=== PATIENT | male | born 1975 | race Caucasian/White ===

== ENCOUNTER 2018-07-20 13:15 | Inpatient (IN) ==
[2018-07-20] MEDS ORDERED: SODIUM CHLORIDE 0.9% 1000ML 1,000 ML IV SCH (14:45)
[2018-07-20] MEDS ORDERED: LABETALOL HCL IV 5 MG/ML 20ML IV STA (14:48)
[2018-07-20] MEDS ORDERED: LORazepam 2 MG/ML VIAL (IM USE) ONE (14:57)
[2018-07-20] MEDS ORDERED: PHENYTOIN SOD INJ 50 MG/ML 5 ML VIAL IV ONE (14:59)
[2018-07-20 15:01] LABS: Basophils # (auto) 0.01 K/uL (0-0.2); Basophils % (auto) 0.2 %; Eosinophils # (auto) 0.03 K/uL (0-0.5); Eosinophils % (auto) 0.5 %; Hemoglobin 14.7 g/dL (14.0-18.0); Immature Granulocytes # (auto) 0.05 K/uL (0.00-0.02); Immature Granulocytes % (auto) 0.8 %; Lymphocytes # (auto) 0.68 K/uL (1.2-3.4); Lymphocytes % (auto) 10.9 %; Mean Corpuscular Volume 86.8 fL (80-100); Mean Platelet Volume 10.4 fL (7.4-10.4); Monocytes # (auto) 0.73 K/uL (0.11-0.59); Monocytes % (auto) 11.7 %; Neutrophils # (auto) 4.74 K/uL (1.4-6.5); Neutrophils % (auto) 75.9 %; Platelet Count 106 K/uL (130-400); RDW Coefficient of Variation 13.4 % (11.5-14.5); RDW Standard Deviation 42.8 fL (36.4-46.3); Red Blood Count 4.84 M/uL (4.7-6.1); White Blood Count 6.24 K/uL (4.8-10.8)
[2018-07-20] MEDS ORDERED: LORazepam 1 MG/2 ML VIAL IV STA (15:05)
[2018-07-20] MEDS ORDERED: PHENYTOIN IV STA (15:18)
[2018-07-20] MEDS ORDERED: SODIUM CHLORIDE 0.9% IV STA (15:18)
[2018-07-20 15:23] LABS: Albumin Level 3.6 gm/dl (3.4-5.0); BUN Creatinine Ratio 9.9 (10-20); Calcium 8.8 mg/dl (8.5-10.1); Creatinine Clr Calc Pharmacy 152.9 ml/min; Est GFR (African American) 118.5; Est GFR (Non-African American) 102.2; Potassium 3.7 mmol/L (3.5-5.1)
[2018-07-20 15:28] LABS: Albumin Globulin Ratio 0.9 (0.9-2); Bilirubin,Total 0.6 mg/dl (0.2-1); Globulin 3.9 gm/dl (2.5-4.0); Total Protein 7.5 gm/dl (6.4-8.2); Troponin I 0.018 ng/ml (0-0.045)
--- NOTE | 2018-07-20 16:26 | CT Scan Report ---
HEAD CT NONCONTRAST CT DOSE: HISTORY: fall, hit head and face TECHNIQUE: Multiaxial CT images of the head were performed without the use of intravenous contrast. A utomated exposure control was utilized for this study. A dose lowering technique was utilized adheri ng to the principles of ALARA. Comparison: None. Findings: Mucosal thickening within the maxillary sinuses. The mastoid air cells are clear. Mild subc utaneous fat stranding/scarring adjacent to the right mastoid. This may be chronic. As also mild righ t lateral scalp swelling. The calvarium and skull base are intact. The ventricles and sulci are withi n normal limits. There is no mass, hematoma, midline shift, or acute infarct. Impression: No acute intracranial abnormality. Electronically signed by: Rafael Fernandez M.D. 07/20/2018 4:25 PM
--- NOTE | 2018-07-20 16:29 | CT Scan Report ---
CT facial bones wo con CT DOSE: 860.38 mGy.cm HISTORY: Trauma fall, hit head and face TECHNIQUE: Multiaxial CT images of the maxillofacial region were performed and reformatted in the cor onal plane without the use of contrast. A dose lowering technique was utilized adhering to the princ iples of BONITA. COMPARISON: None. FINDINGS: The visualized cervical spine, skull base, pterygoid plates, nasal bones, lamina papyracea, orbital floors, mandible, and zygomatic arches are intact. No fractures. The orbits are unremarkable . Moderate scattered mucosal thickening of the sinuses. Mild prefrontal soft tissue edema. IMPRESSION: No fractures within the maxillofacial region. The above report was generated using voice recognition software. It may contain grammatical, syntax or spelling errors. Electronically signed by: Pérez Wilkinson M.D. 07/20/2018 4:28 PM
--- NOTE | 2018-07-20 16:35 | XRay Report ---
XR chest 1V portable HISTORY: syncope COMPARISON: None. FINDINGS: The cardiac silhouette is mildly enlarged. This may be accentuated by the AP portable techn ique. The lungs are clear. No pleural effusions. No pneumothorax. No rib fractures. IMPRESSION: Mild enlargement of the cardiac silhouette. Electronically signed by: Rafael Fernandez M.D. 07/20/2018 4:34 PM
--- NOTE | 2018-07-20 16:51 | Emergency Department Note ---
Entered by Carina Walter acting as a scribe for Klaus Gonzales MD History of Present Illness General Chief complaint: Seizure Stated complaint: SEIZURE Time Seen by Provider: 07/20/18 14:33 Source: patient and family (mother) History of Present Illness Provider complaint: seizure Onset (ago): hour(s) (shortly prior to arrival ) Location: left and right Pain Consistency: + other (lasted for 1 minute) Quality: + other (seizure) Associated symptoms: + denies other symptoms (denies any pain including neck pain) The patient is a 43 year old male who presents to the Emergency Department with complaints of a seizure occurring shortly prior to arrival. The patient states that the last thing he remembers after coming out of his truck is waking up in a mud puddle. He states that he did not bite his tongue or urinate himself. The patient denies having any pain currently including neck pain. He reports a history of hypertension. The patient denies a history of seizures and also denies a family history of seizures. The patient reports recent stress with switching jobs. He reports feeling fine prior to today. Per mother, the patient is a heavy drinker. He denies drinking heavily last night. The patient states that he does not drink enough water. Review of notes show that the patient works in construction and was dazed and then collapsed and had a 1 minute seizure. He was post-ictal afterwards. He was given 2 mg of Versed IM. Home Medications Home Medications Medication Instructions Recorded Confirmed Type atenolol 100 mg PO QAM 07/20/18 07/20/18 History fosinopril 20 mg PO QAM 07/20/18 07/20/18 History Allergies Allergy/AdvReac Type Severity Reaction Status Date / Time No Known Allergies Allergy Unverified 07/20/18 14:13 Past Med/Surg History Social History Preferred Language: French Feels Safe at Home: Yes Smoking Status: Light tobacco smoker Hx Alcohol Use: Yes (Binge drinker) Review of Systems See HPI for pertinent positives & negatives. and A total of 10 systems reviewed and were otherwise negative Physical Exam Vital Signs Vital Signs - 24 hr 07/20/18 13:25 07/20/18 13:28 07/20/18 13:32 Temperature 36.7 C Temperature Source Oral Sepsis Recent Fever Within 48 Hours No Sepsis New/Unexplained Change in Mental Status No Sepsis Action Taken by Nursing No Action Required Pulse Rate 88 90 90 Pulse Rate [Apical] Pulse Rate from SpO2 Sensor 89 90 Pulse Rhythm [Apical] Pulse Strength [Apical] Respiratory Rate 24 20 23 Respiratory Effort / Characteristics Non-Labored Spontaneous Respiratory Depth Respiratory Pattern Blood Pressure 188/109 H 188/109 H Blood Pressure [Left Arm] Blood Pressure Mean 135 135 Blood Pressure Mean [Left Arm] Blood Pressure Position [Left Arm] Pulse Oximetry 95 95 94 Oxygen Delivery Method Room Air 07/20/18 13:45 07/20/18 13:48 07/20/18 13:50 Temperature Temperature Source Sepsis Recent Fever Within 48 Hours Sepsis New/Unexplained Change in Mental Status Sepsis Action Taken by Nursing Pulse Rate 86 87 Pulse Rate [Apical] 89 Pulse Rate from SpO2 Sensor 90 89 Pulse Rhythm [Apical] Regular Pulse Strength [Apical] Normal Respiratory Rate 16 20 22 Respiratory Effort / Characteristics Non-Labored Spontaneous Respiratory Depth Normal Respiratory Pattern Regular Blood Pressure 171/107 H Blood Pressure [Left Arm] 214/119 H Blood Pressure Mean 128 Blood Pressure Mean [Left Arm] 150 Blood Pressure Position [Left Arm] Lying Pulse Oximetry 96 95 97 Oxygen Delivery Method Room Air 07/20/18 14:00 07/20/18 14:01 07/20/18 14:06 Temperature Temperature Source Sepsis Recent Fever Within 48 Hours Sepsis New/Unexplained Change in Mental Status Sepsis Action Taken by Nursing Pulse Rate 94 H 91 H Pulse Rate [Apical] 85 Pulse Rate from SpO2 Sensor 95 H 92 H Pulse Rhythm [Apical] Regular Pulse Strength [Apical] Normal Respiratory Rate 21 17 20 Respiratory Effort / Characteristics Non-Labored Spontaneous Respiratory Depth Normal Respiratory Pattern Regular Blood Pressure 208/119 H Blood Pressure [Left Arm] 208/119 H Blood Pressure Mean 148 Blood Pressure Mean [Left Arm] 148 Blood Pressure Position [Left Arm] Lying Pulse Oximetry 99 99 98 Oxygen Delivery Method Room Air 07/20/18 14:15 07/20/18 14:30 07/20/18 14:31 Temperature Temperature Source Sepsis Recent Fever Within 48 Hours Sepsis New/Unexplained Change in Mental Status Sepsis Action Taken by Nursing Pulse Rate 82 79 80 Pulse Rate [Apical] Pulse Rate from SpO2 Sensor 84 79 80 Pulse Rhythm [Apical] Pulse Strength [Apical] Respiratory Rate 18 25 H 23 Respiratory Effort / Characteristics Respiratory Depth Respiratory Pattern Blood Pressure 210/120 H Blood Pressure [Left Arm] Blood Pressure Mean 150 Blood Pressure Mean [Left Arm] Blood Pressure Position [Left Arm] Pulse Oximetry 98 96 96 Oxygen Delivery Method 07/20/18 14:38 07/20/18 14:45 07/20/18 14:52 Temperature Temperature Source Sepsis Recent Fever Within 48 Hours Sepsis New/Unexplained Change in Mental Status Sepsis Action Taken by Nursing Pulse Rate 81 77 Pulse Rate [Apical] 82 Pulse Rate from SpO2 Sensor 81 77 Pulse Rhythm [Apical] Regular Pulse Strength [Apical] Normal Respiratory Rate 20 22 20 Respiratory Effort / Characteristics Non-Labored Spontaneous Respiratory Depth Normal Respiratory Pattern Regular Blood Pressure 200/109 H Blood Pressure [Left Arm] 210/120 H Blood Pressure Mean 139 Blood Pressure Mean [Left Arm] 150 Blood Pressure Position [Left Arm] Lying Pulse Oximetry 97 98 97 Oxygen Delivery Method Room Air 07/20/18 15:00 07/20/18 15:01 07/20/18 15:15 Temperature Temperature Source Sepsis Recent Fever Within 48 Hours Sepsis New/Unexplained Change in Mental Status Sepsis Action Taken by Nursing Pulse Rate 129 H 119 H 111 H Pulse Rate [Apical] Pulse Rate from SpO2 Sensor 125 H 117 H 111 H Pulse Rhythm [Apical] Pulse Strength [Apical] Respiratory Rate 19 27 H Respiratory Effort / Characteristics Respiratory Depth Respiratory Pattern Blood Pressure 175/142 H Blood Pressure [Left Arm] Blood Pressure Mean 153 Blood Pressure Mean [Left Arm] Blood Pressure Position [Left Arm] Pulse Oximetry 100 96 95 Oxygen Delivery Method 07/20/18 15:25 07/20/18 15:27 07/20/18 15:30 Temperature Temperature Source Sepsis Recent Fever Within 48 Hours Sepsis New/Unexplained Change in Mental Status Sepsis Action Taken by Nursing Pulse Rate 96 H 91 H Pulse Rate [Apical] 94 H Pulse Rate from SpO2 Sensor 96 H 91 H Pulse Rhythm [Apical] Pulse Strength [Apical] Respiratory Rate 24 24 19 Respiratory Effort / Characteristics Respiratory Depth Respiratory Pattern Blood Pressure 189/118 H Blood Pressure [Left Arm] 189/118 H Blood Pressure Mean 141 Blood Pressure Mean [Left Arm] 141 Blood Pressure Position [Left Arm] Pulse Oximetry 94 94 93 Oxygen Delivery Method Room Air 07/20/18 15:31 07/20/18 15:45 07/20/18 15:56 Temperature Temperature Source Sepsis Recent Fever Within 48 Hours Sepsis New/Unexplained Change in Mental Status Sepsis Action Taken by Nursing Pulse Rate 91 H 84 78 Pulse Rate [Apical] Pulse Rate from SpO2 Sensor 91 H 85 79 Pulse Rhythm [Apical] Pulse Strength [Apical] Respiratory Rate 19 23 24 Respiratory Effort / Characteristics Respiratory Depth Respiratory Pattern Blood Pressure 180/110 H 159/109 H Blood Pressure [Left Arm] Blood Pressure Mean 133 125 Blood Pressure Mean [Left Arm] Blood Pressure Position [Left Arm] Pulse Oximetry 92 97 97 Oxygen Delivery Method 07/20/18 16:00 07/20/18 16:23 07/20/18 16:24 Temperature Temperature Source Sepsis Recent Fever Within 48 Hours Sepsis New/Unexplained Change in Mental Status Sepsis Action Taken by Nursing Pulse Rate 79 79 88 Pulse Rate [Apical] Pulse Rate from SpO2 Sensor 79 81 Pulse Rhythm [Apical] Pulse Strength [Apical] Respiratory Rate 24 25 H 23 Respiratory Effort / Characteristics Respiratory Depth Respiratory Pattern Blood Pressure 164/91 H Blood Pressure [Left Arm] Blood Pressure Mean 115 Blood Pressure Mean [Left Arm] Blood Pressure Position [Left Arm] Pulse Oximetry 96 95 Oxygen Delivery Method 07/20/18 16:30 07/20/18 16:31 07/20/18 16:45 Temperature Temperature Source Sepsis Recent Fever Within 48 Hours Sepsis New/Unexplained Change in Mental Status Sepsis Action Taken by Nursing Pulse Rate 78 81 90 Pulse Rate [Apical] Pulse Rate from SpO2 Sensor 79 81 90 Pulse Rhythm [Apical] Pulse Strength [Apical] Respiratory Rate 23 21 24 Respiratory Effort / Characteristics Respiratory Depth Respiratory Pattern Blood Pressure 157/96 H Blood Pressure [Left Arm] Blood Pressure Mean 116 Blood Pressure Mean [Left Arm] Blood Pressure Position [Left Arm] Pulse Oximetry 96 96 96 Oxygen Delivery Method 07/20/18 16:48 07/20/18 17:00 07/20/18 17:02 Temperature Temperature Source Sepsis Recent Fever Within 48 Hours Sepsis New/Unexplained Change in Mental Status Sepsis Action Taken by Nursing Pulse Rate 85 84 Pulse Rate [Apical] Pulse Rate from SpO2 Sensor 85 84 Pulse Rhythm [Apical] Pulse Strength [Apical] Respiratory Rate 18 22 Respiratory Effort / Characteristics Respiratory Depth Respiratory Pattern Blood Pressure 159/101 H Blood Pressure [Left Arm] 157/96 H Blood Pressure Mean 120 Blood Pressure Mean [Left Arm] 116 Blood Pressure Position [Left Arm] Pulse Oximetry 97 99 Oxygen Delivery Method 07/20/18 17:15 07/20/18 17:25 07/20/18 17:35 Temperature 36.7 C Temperature Source Oral Sepsis Recent Fever Within 48 Hours Sepsis New/Unexplained Change in Mental Status Sepsis Action Taken by Nursing Pulse Rate 88 97 H Pulse Rate [Apical] 97 H Pulse Rate from SpO2 Sensor 88 Pulse Rhythm [Apical] Pulse Strength [Apical] Respiratory Rate 16 16 16 Respiratory Effort / Characteristics Non-Labored Spontaneous Respiratory Depth Normal Respiratory Pattern Regular Blood Pressure 159/101 H Blood Pressure [Left Arm] 159/101 H Blood Pressure Mean Blood Pressure Mean [Left Arm] 120 Blood Pressure Position [Left Arm] Pulse Oximetry 98 98 98 Oxygen Delivery Method Room Air Room Air GENERAL: Patient is in no acute distress. HEENT: Normocephalic, mucous membranes moist, no nasal congestion, no scleral icterus. No facial bony step-off. Dried blood noted across the face. No active bleeding. No lacerations. Normal bite. NECK: No stridor, no adenopathy, no meningismus, trachea is midline. Non-tender posterior C spine. Full range of motion of the neck without pain. LUNGS: Clear to auscultation bilaterally, no wheeze, no rhonchi, breath sounds equal. HEART: Without murmurs gallops or rubs, regular rate and rhythm. ABDOMEN: Soft, nontender, bowel sounds positive, no hernias, no peritonitis. EXTREMITIES: No cyanosis or edema, full range of motion of all the joints without pain or difficulty, no signs for acute trauma. NEUROLOGIC: Oriented x 3, no acute motor or sensory deficits, no focal weakness. SKIN: No rash, no jaundice, no diaphoresis. Course 1434: The patient was evaluated in room C6. A history and physical were performed. 1456: The patient is actively having a seizure. 1458: I checked on the patient and he was post-ictal. The nurses said that his seizure lasted for about 1 minute. He became combative after the seizure ended and was given 1 mg of Ativan IV. 1521: I checked on the patient. He is awake and doing better. 1546: I discussed the patient's case with Dr. Jones who said that the patient needs an MRI and EEG. 1600: I discussed the patient's case with Dr. Micki Tay who will evaluate the patient for further management. 1712: I updated the patient and his family on his imaging results. Consultations Consultation #1: Dr. Jones Time: 15:46 Consultation #2: Dr. Micki Tay Time: 16:00 Administered Medications Discontinued Medications Sodium Chloride (Nss 1000ml) 1,000 mls @ 999 mls/hr IV .[id number] Stop: 07/20/18 15:45 Last Infusion: 07/20/18 16:14 Dose: 0 mls/hr Documented by: [id number] Admin: 07/20/18 15:13 Dose: 999 mls/hr Documented by: [id number] Levetiracetam 1,000 mg/ (Dextrose) 110 mls @ 440 mls/hr IV NOW STA Stop: 07/20/18 15:17 Last Infusion: 07/20/18 15:40 Dose: 0 mls/hr Documented by: [id number] Admin: 07/20/18 15:25 Dose: 440 mls/hr Documented by: [id number] Lorazepam (Ativan) 1 mg in 2 mls @ 2 mls/min IV NOW STA Stop: 07/20/18 15:06 Last Admin: 07/20/18 15:13 Dose: Not Given Documented by: [id number] Phenytoin 2,000 mg/ Sodium (Chloride) 140 mls @ 200 mls/hr IV NOW STA Stop: 07/20/18 15:59 Last Infusion: 07/20/18 16:26 Dose: 0 mls/hr Documented by: [id number] Admin: 07/20/18 15:44 Dose: 200 mls/hr Documented by: [id number] Labetalol HCl (Normodyne) 10 mg IV NOW STA Stop: 07/20/18 14:49 Last Admin: 07/20/18 17:32 Dose: Not Given Documented by: [id number] Lorazepam (Ativan) Confirm Administered Dose 2 mg .ROUTE .STK-MED ONE Stop: 07/20/18 14:58 Last Admin: 07/20/18 15:14 Dose: 2 mg Documented by: [id number] Phenytoin (Dilantin) Confirm Administered Dose 250 mg IV .STK-MED ONE Stop: 07/20/18 15:00 Last Admin: 07/20/18 15:36 Dose: Not Given Documented by: [id number] Medical Decision Making Differential Diagnosis Differentials include seizure, hypotension, syncope, syncopal seizure, dysrhythmia, electrolyte imbalance, dehydration, and anemia. Medical Records Attestation: I reviewed the patient's medical records. Home Medications Current Medication List: was personally reviewed by me Laboratory Data Attestation: I reviewed the patient's lab results. Result diagrams: 07/20/18 14:48 07/20/18 14:48 Lab Results 07/20/18 07/20/18 07/20/18 Range/Units 14:48 14:48 14:51 WBC 6.24 (4.8-10.8) K/uL RBC 4.84 (4.7-6.1) M/uL Hgb 14.7 (14.0-18.0) g/dL Hct 42.0 (42-52) % MCV 86.8 (80-100) fL MCH 30.4 (25-34) pg MCHC 35.0 (32-36) g/dL RDW Std Deviation 42.8 (36.4-46.3) fL RDW Coeff of Leno 13.4 (11.5-14.5) % Plt Count 106 L (130-400) K/uL MPV 10.4 (7.4-10.4) fL Immature Gran % (Auto) 0.8 % Neut % (Auto) 75.9 % Lymph % (Auto) 10.9 % [place] % (Auto) 11.7 % Eos % (Auto) 0.5 % Baso % (Auto) 0.2 % Immature Gran # (Auto) 0.05 H (0.00-0.02) K/uL Neut # (Auto) 4.74 (1.4-6.5) K/uL Lymph # (Auto) 0.68 L (1.2-3.4) K/uL [place] # (Auto) 0.73 H (0.11-0.59) K/uL Eos # (Auto) 0.03 (0-0.5) K/uL Baso # (Auto) 0.01 (0-0.2) K/uL Sodium 139 (136-145) mmol/L Potassium 3.7 (3.5-5.1) mmol/L Chloride 106 (98-107) mmol/L Carbon Dioxide 28 (21-32) mmol/L Anion Gap 5.0 (3-11) BUN 9 (7-18) mg/dl Creatinine 0.92 (0.6-1.4) mg/dl Est Cr Clr Drug Dosing 152.9 ml/min Est GFR ( Amer) 118.5 Est GFR (Non-Af Amer) 102.2 BUN/Creatinine Ratio 9.9 L (10-20) Glucose 102 H (70-99) mg/dl Calcium 8.8 (8.5-10.1) mg/dl Magnesium 2.0 (1.8-2.4) mg/dl Total Bilirubin 0.6 (0.2-1) mg/dl AST 85 H (15-37) U/L ALT 89 H (12-78) U/L Alkaline Phosphatase 77 (45-117) U/L Troponin I 0.018 (0-0.045) ng/ml Total Protein 7.5 (6.4-8.2) gm/dl Albumin 3.6 (3.4-5.0) gm/dl Globulin 3.9 (2.5-4.0) gm/dl Albumin/Globulin Ratio 0.9 (0.9-2) TSH 1.240 (0.300-4.500) uIu/ml 07/20/18 Range/Units 14:51 WBC (4.8-10.8) K/uL RBC (4.7-6.1) M/uL Hgb (14.0-18.0) g/dL Hct (42-52) % MCV (80-100) fL MCH (25-34) pg MCHC (32-36) g/dL RDW Std Deviation (36.4-46.3) fL RDW Coeff of Leno (11.5-14.5) % Plt Count (130-400) K/uL MPV (7.4-10.4) fL Immature Gran % (Auto) % Neut % (Auto) % Lymph % (Auto) % [place] % (Auto) % Eos % (Auto) % Baso % (Auto) % Immature Gran # (Auto) (0.00-0.02) K/uL Neut # (Auto) (1.4-6.5) K/uL Lymph # (Auto) (1.2-3.4) K/uL [place] # (Auto) (0.11-0.59) K/uL Eos # (Auto) (0-0.5) K/uL Baso # (Auto) (0-0.2) K/uL Sodium (136-145) mmol/L Potassium (3.5-5.1) mmol/L Chloride (98-107) mmol/L Carbon Dioxide (21-32) mmol/L Anion Gap (3-11) BUN (7-18) mg/dl Creatinine (0.6-1.4) mg/dl Est Cr Clr Drug Dosing ml/min Est GFR ( Amer) Est GFR (Non-Af Amer) BUN/Creatinine Ratio (10-20) Glucose (70-99) mg/dl Calcium (8.5-10.1) mg/dl Magnesium (1.8-2.4) mg/dl Total Bilirubin (0.2-1) mg/dl AST (15-37) U/L ALT (12-78) U/L Alkaline Phosphatase (45-117) U/L Troponin I Cancelled (0-0.045) ng/ml Total Protein (6.4-8.2) gm/dl Albumin (3.4-5.0) gm/dl Globulin (2.5-4.0) gm/dl Albumin/Globulin Ratio (0.9-2) TSH (0.300-4.500) uIu/ml Imaging Data Radiologist's Impression: Radiology results as stated below per my review and the radiologist's interpretation: XR chest 1 portable HISTORY: syncope COMPARISON: None. FINDINGS: The cardiac silhouette is mildly enlarged. This may be accentuated by the AP portable technique. The lungs are clear. No pleural effusions. No pneumothorax. No rib fractures. IMPRESSION: Mild enlargement of the cardiac silhouette. Electronically signed by: Rafael Fernandez M.D. 07/20/2018 4:[address] facial bones wo con CT DOSE: 860.38 mGy.cm HISTORY: Trauma fall, hit head and face TECHNIQUE: Multiaxial CT images of the maxillofacial region were performed and reformatted in the coronal plane without the use of contrast. A dose lowering technique was utilized adhering to the principles of ALARA. COMPARISON: None. FINDINGS: The visualized cervical spine, skull base, pterygoid plates, nasal bones, lamina papyracea, orbital floors, mandible, and zygomatic arches are inta ct. No fractures. The orbits are unremarkable. Moderate scattered mucosal thickening of the sinuses. Mild prefrontal soft tissue edema. IMPRESSION: No fractures within the maxillofacial region. The above report was generated using voice recognition software. It may contain grammatical, syntax or spelling errors. Electronically signed by: Pérez Wilkinson M.D. 07/20/2018 4:[address] CT DOSE: HISTORY: fall, hit head and face TECHNIQUE: Multiaxial CT images of the head were performed without the use of intravenous contrast. Automated exposure control was utilized for this study. A dose lowering technique was utilized adhering to the principles of ALARA. Comparison: None. Findings: Mucosal thickening within the maxillary sinuses. The mastoid air cells are clear. Mild subcutaneous fat stranding/scarring adjacent to the right mastoid. This may be chronic. As also mild right lateral scalp swelling. The calvarium and skull base are intact. The ventricles and sulci are within normal limits. There is no mass, hematoma, midline shift, or acute infarct. Impression: No acute intracranial abnormality. Electronically signed by: Rafael Fernandez M.D. 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 No significant electrolyte abnormality or kidney failure. AST and ALT are slightly elevated, bilirubin was normal. EKG showed a sinus rhythm, no acute ischemia. Cardiac enzyme testing x1 did not show evidence for acute cardiac injury. The patient appeared to be in a euthyroid state. Urine tox is pending. Chest film did not show pneumonia or CHF. Brain CT showed no acute bleed or mass-effect. Facial CT showed no acute fracture. Shortly after I was in to see the patient, I received a call from nursing as the patient was again having seizure-like activity. This lasted for less than a minute but was tonic-clonic. He was postictal afterwards. He did become slightly cyanotic as part of the initial postictal phase, the cyanosis improved with O2. His airway was suctioned. He received 1 mg of IV Ativan stat. He was then given a loading dose of IV Dilantin as well as a gram of IV Keppra. He did receive IV saline for hydration. Patient was ordered for IV labetalol however, the blood pressure began to trend down on its own. The labetalol was held. The patient is sleepy from the Ativan but doing well. He is aware of his findings. He is aware of the need to stay in the hospital. The cause for this seizure-like activity is unclear. Certainly, alcohol withdrawal must be considered as he does typically drink alcohol fairly heavily. I did speak with neurology, I did consult the hospitalist. Case management has been involved. Further inpatient work-up is warranted. Impression & Plan Seizures, HTN (hypertension), Facial trauma Critical Care Time I have personally spent 35 minutes of critical care time in the direct management of this patient. This includes bedside care, interpretation of diagnostic studies, and testing, discussion with consultants, patient, and family members, and other required patient management activities. This 35 minutes is in excess of all separately billable procedures. Critical Care Time: Yes Total Critical Care Time: 35 Discharge Plan Visit Data Chief Complaint: Seizure Stated Complaint: SEIZURE Other Complaint: Facial Injury/Pain ED Provider: Klaus Gonzales Discharge Problem: Seizures, HTN (hypertension), Facial trauma Patient Disposition: Being Evaluated by Hospitalist Discharge Instructions Interventions: ED Discharge Assessment Last Done: 07/20/18 17:35 Discharge Problem: HTN (hypertension) Qualifiers: Hypertension type: unspecified Qualified Code(s): I10 - Essential (primary) hypertension Facial trauma Qualifiers: Encounter type: initial encounter Qualified Code(s): S09.93XA - Unspecified injury of face, initial encounter The scribe's documentation has been prepared under my direction and personally reviewed by me in its entirety. I confirm that the note above accurately reflects all work, treatment, procedures, and medical decision making performed by me.
--- NOTE | 2018-07-20 17:15 | History & Physical Report ---
Date of Service July 20, 2018 Assessment & Plan (1) Seizures: Patient had witnessed seizure in the emergency department was given Keppra and Dilantin will continue Keppra 500 twice daily-neurology consultation and EEG ordered in the morning. CT scan of his head and face in the ER was unremarkable Because of the concern of some alcohol use the patient will be put on scheduled Librium at very low dose of 12.5. Have putting back up for blood pressure control we are not instituting gabapentin at this time Please patient be on seizure precautions (2) HTN (hypertension): Patient be continued on atenolol and Monopril for his blood pressure con trol (3) Alcohol use: Patient was counseled on cessation. As mentioned he will be on low-dose of Librium at this time if he appears to have more withdrawal type symptoms we will institute gabapentin (4) DVT prophylaxis: Patient be on SCDs and teds given his seizures for DVT prevention History of Present Illness Primary Care Provider: Deuce Rojo 43-year-old male who presented from the field with a concern for seizures and was witnessed to have a grand mal seizure in the emergency department by staff. 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 Patient brought to the ER where he was postictal then resumed his normal state and he was again developed the staring type of posture that had tonic-clonic movements. Patient was given benzodiazepines Keppra and Dilantin in the ER. A CT scan of his head is unremarkable tox screen is currently pending. Patient does drink alcohol usually more of a binge type drinking alcohol not a daily drinker of alcohol he did have some alcohol last night which is less than his usual state. However he is does not drink continuously throughout the week. He is never had problems with withdrawal in the past. He currently although Medicaid does not appear to be shaky he is slightly hypertensive Patient denies using any other illegal substances [id number] meds or supplements of any kind. He typically only takes atenolol and Monopril for hypertensive control Allergies Allergy/AdvReac Type Severity Reaction Status Date / Time No Known Allergies Allergy Unverified 07/20/18 14:13 Home Medications Home Medications Medication Instructions Recorded Confirmed Type atenolol 100 mg PO QAM 07/20/18 07/20/18 History fosinopril 20 mg PO QAM 07/20/18 07/20/18 History Past Med/Surg History Medical History HTN (hypertension) (Chronic) Family History Father Alcoholism Social History Preferred Language: Nigerien Feels Safe at Home: Yes Smoking Status: Light tobacco smoker Hx Alcohol Use: Yes (Binge drinker) Review of Systems Review of Systems: ROS: well nourished well developed. No double vision blurry vision No problems with speech or swallowing Has some pain to his nose which he struck me from the ground of the worksite No palpitations, chest pain or pressure No Wheezing or breathing issues No abdominal pain nausea vomiting diarrhea changes in appetite or weight No burning urine urine frequency or changes in color No focal joint pain or muscle pain No skin rashes or oral lesions No unusual bruising or bleeding No focused back pain or numbness or loss of strength No changes in memory or confusion Physical Exam Physical Exam: The patient appeared well nourished and normally developed. Vital signs as documented. He is slightly hypertensive he is "ready "complected Head exam is unremarkable. normocephalic, atraumatic Neck is without jugular venous distension, thyromegaly, or lymphademopathy Lungs are clear to auscultation and percussion. Cardiac exam reveals Rhythm is regular. First and second heart sounds normal. Abdominal exam reveals normal bowel sounds, no masses, no organomegaly Extremities are nonedematous and both pedal pulses are present Neurologic exam is A&Ox3, no focal deficits, strength is equal bilateral Psychologically seems neither anxious or depressed but is slightly sedated from medications received in the ER Skin is warm Dry without bruises or lesions Results & Data Vital Signs (Past 12 Hours) Vital Signs Temp Pulse Pulse Resp BP BP Pulse Ox 07/20/18 16:48 157/96 H 07/20/18 15:27 94 H 24 189/118 H 94 07/20/18 14:38 82 20 210/120 H 97 07/20/18 14:06 85 20 208/119 H 98 07/20/18 13:48 89 20 214/119 H 95 07/20/18 13:28 36.7 C 90 20 188/109 H 95
[2018-07-20] MEDS ORDERED: ALUMINUM/MAGNESIUM SUSP 30 ML UDC PO PRN (18:17)
[2018-07-20] MEDS ORDERED: ACETAMINOPHEN 325 MG TAB PO PRN (18:17)
[2018-07-20] MEDS ORDERED: LORazepam 2 MG/4 ML VIAL IV PRN (18:17)
[2018-07-20] MEDS ORDERED: ONDANSETRON INJ 2 MG/ML 2 ML VIAL IV PRN (18:17)
[2018-07-20 18:21] LABS: Amphetamines+Metham, Urine Neg (Neg); Barbiturates, Urine Neg (Neg); Benzodiazepine, Urine Pos (Neg); Cocaine, Urine Neg (Neg); MDMA (Ecstacy), Urine Neg (Neg); Methadone, Urine Neg (Neg); Opiate, Urine Neg (Neg); Phencyclidine, Urine Neg (Neg)
[2018-07-20] MEDS: SODIUM CHLORIDE 0.9% 1000ML 1,000 ML IV SCH (18:38)
[2018-07-20] MEDS ORDERED: ACETAMINOPHEN 325 MG TAB ONE (18:44)
[2018-07-20] MEDS: levETIRAcetam 500 MG TAB PO SCH (20:29)
[2018-07-21] MEDS: cloNIDine HCl 0.1 MG TAB PO PRN ×3 (00:05→19:40)
[2018-07-21] MEDS: SODIUM CHLORIDE 0.9% 1000ML 1,000 ML IV SCH ×2 (04:40→13:52)
[2018-07-21] MEDS: levETIRAcetam 500 MG TAB PO SCH ×2 (07:27→20:47)
[2018-07-21] MEDS: ATENOLOL 50 MG TABLET PO SCH (07:27)
[2018-07-21] MEDS: LISINOPRIL 20 MG TAB PO SCH (07:28)
[2018-07-21 07:36] LABS: Hemoglobin 13.3 g/dL (14.0-18.0); Mean Corpuscular Hgb Conc 34.1 g/dL (32-36); Mean Corpuscular Volume 88.6 fL (80-100); RDW Coefficient of Variation 13.7 % (11.5-14.5); RDW Standard Deviation 44.6 fL (36.4-46.3); White Blood Count 4.49 K/uL (4.8-10.8)
[2018-07-21 08:09] LABS: BUN Creatinine Ratio 8.5 (10-20); Calcium 8.1 mg/dl (8.5-10.1); Creatinine Clr Calc Pharmacy 159.4 ml/min; Est GFR (African American) 124.6; Est GFR (Non-African American) 107.5; Potassium 3.4 mmol/L (3.5-5.1)
[2018-07-21 08:10] LABS: Mean Platelet Volume 10.9 fL (7.4-10.4); Platelet Count 93 K/uL (130-400)
[2018-07-21 08:15] LABS: Platelet Estimate Decreased (Normal)
[2018-07-21 09:13] LABS: Albumin Level 3.1 gm/dl (3.4-5.0); Bilirubin Direct 0.2 mg/dl (0-0.2); Bilirubin,Total 0.9 mg/dl (0.2-1); Total Protein 6.4 gm/dl (6.4-8.2)
--- NOTE | 2018-07-21 09:20 | Neurology Consultation ---
Date of Consultation July 21, 2018 Assessment & Plan (1) Seizures: Deion is a 43 year old male with no significant past medical history that has presented to [facility] after experiencing a seizure yesterday. Due to his recent heavy alcohol use and poor sleep it is likely that this was a provoked seizure. Below are our recommendations for further work-up and management of this patients seizure event. 1) Continue workup by obtaining an MRI of the brain to look for any masses, stroke or anatomical abnormalities that could explain his seizure. Order an EEG to check for any seizure like activity that would indicate a higher probability of seizure in the future. 2) If the above workup returns as negative then the patient does not need to be placed on seizure medication as this was his first event and is likely provoked from his alcohol use. 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 He will need follow up with his PCP to discuss outpatient alcohol treatment options and will need to be given information for AA. Please contact the Neurology team for any further questions or recommendations. Supervising Physician Co-Signing Physician Notes Patient presented with new onset seizure. By report he was getting out of his truck and had a witnessed tonic-clonic seizure. He denies any warning beforehand. He denies any history of seizures. No family history of seizures. In the emergency room had another tonic-clonic seizure witnessed by staff. Patient was given Ativan, Dilantin, and Keppra. No additional seizure-like events overnight. No urinary incontinence or tongue biting. Patient does admit to increased alcohol consumption recently, around 8-15 beers per day for the last 8months plus unspecified quantity of vodka. Admits that he has been increasing his alcohol usage in the last few weeks. Has had significant psychosocial stress with a divorce 8 months ago. He does have kids. He is starting a new job driving truck. Patient does own firearms but denies any suicidal ideation. Exam: Gen.: Patient is alert and oriented in no acute distress lying in bed Heart: Regular rate and rhythm Extremities: No gross deformities or rashes noted Neurological examination: Mental status: Patient is alert and oriented to person place and time. Able to give own history. Good fund of knowledge. Attention and concentration normal for the situation. Recent and remote memory intact Speech is fluent without any dysarthria or aphasia noted Cranial nerves: Funduscopic examination was difficult to visualize. Pupils equally round and reactive to light. Extraocular muscles intact without nystagmus. No facial asymmetry noted. Facial sensation intact. Tongue midline. Good palatal elevation. Good shoulder shrug bilaterally. Hearing grossly intact voice. Strength: 5/5 both proximal and distal in all extremities .Tone is normal. Sensation: Grossly intact to light touch in all extremities Deep tendon reflexes: +1 in bilateral biceps and patellar. Coordination: Patient has good finger to nose without dysmetria Station within the bed is normal. Assessment: This is a 43-year-old male with a single seizure event (he had 2 seizures within 24 hours). Potentially provoked from increased alcohol usage and abuse. Recommendations: I have ordered a routine EEG and an MRI of the brain with seizure protocol for additional work-up of seizure etiology. If EEG and MRI of the brain are normal, can discontinue Keppra. Discussed with the patient that if he has any additional seizures in the future, would likely need to go back on antiepileptic medication. No driving for 6 months. Discussed with patient that sometimes [employer] gives an exemption for a provoked seizure, but considering that seizure may have been provoked by alcohol abuse, they would likely want to see him in alcohol treatment and cleared by psychiatry first. I did discuss with the patient that I highly recommend seeing psychologist, psychiatrist, or alcohol treatment program as an outpatient. Follow-up in neurology clinic for hospital follow-up in 1 month, or as needed. History of Present Illness Reason for Consultation: Seizure Requesting Physician: Willy Tobin History of Present Illness Deion is a 43 year old male with a PMH of hypertension that has presented to the ED on 07/20/18 secondary to having a seizure. At approximately 11am yesterday morning he was getting out of his truck and fell of the top step. He landed on the ground next to his truck and his whole body was shaking according to the passenger in the truck. He then remembers waking up in a mud puddle. He was post ictal and EMS was called and administered 2mg of versed IM. This seizure lasted for 1 minute. In the ED at 1456 he had another episode of body shaking that lasted one minute. He was given 1 mg of ativan and subsequently given 1000mg of keppra and 2000mg of dilantin. In the ED his vitals were unremarkable except for mild elevation in his blood pressure. He had a CBC which showed a mildly decrease in his platelets but was otherwise unremarkable. He had a CMP which showed a mild elevation in his ALT and AST. He had a normal trop and TSH. An EKG showed mild atrial enlargement. He had a CXR and CT head/face which was unremarkable. He was admitted to the guerra for further monitoring and testing. He has been placed on keppra 500mg bid as well as scheduled librium due to the concern for alcohol withdrawal. This morning the patient notes he feels well and denies any significant symptoms. On further history taking from the patient he notes that he got 8 months ago and has been living on his own in an apartment. Since the divorce he notes he has been drinking much more than usual. For the past 8 months he has been drinking approximately 8-12 beers a day with an occasional pint of vodka. He has been feeling very anxious about his current divorce, his finances, his job and the effect of the divorce on his kids. He notes he has had difficulty sleeping and often wakes up at night thinking about different things and has trouble falling back asleep. He denies any decreased mood, or thoughts of harming himself. He has good family support from his parents but he is an only child. He has a family history of alcoholism in his dad and he does not have any family history of seizures. This was his first seizure event in his life. Allergies Allergy/AdvReac Type Severity Reaction Status Date / Time No Known Allergies Allergy Unverified 07/20/18 14:13 Home Medications Home Medications Medication Instructions Recorded Confirmed Type atenolol 100 mg PO QAM 07/20/18 07/20/18 History fosinopril 20 mg PO QAM 07/20/18 07/20/18 History Patient History Medical History HTN (hypertension) (Chronic) Family History Father Alcoholism Social History Preferred Language: [place] Islander Communication Ability: Effective Forensic Anthropologist Required: No Beliefs That Will Affect Care: None Current Living Situation: Alone Other Information That Helps Us Care for You: No Feels Safe at Home: Yes Safety Concerns: Feels Safe At This Time Smoking Status: Unknown if ever smoked Hx Alcohol Use: Yes Alcohol type: beer and hard liquor Hx Substance Use: No Review of Systems Constitutional: no fever, no chills, no sweats and no fatigue Eyes: no diplopia and no worsening vision Ear, Nose, Mouth, Throat: no tinnitus and no facial pain Respiratory: no cough, no chest congestion, no dyspnea and no wheezing Cardiovascular: no chest pain, no orthopnea, no palpitations and no lightheadedness Gastrointestinal: no abdominal pain, no nausea, no vomiting, no change in stools, no constipation and no diarrhea/loose stools Musculoskeletal: no back pain, no joint pain and no myalgia Neurologic: no unsteadiness, no generalized weakness, no tingling, no numbness, no radiating pain, no tremor(s), no headache(s) and no confusion Psychiatric: + abnormal sleep pattern, + anxiety, + difficulty concentrating and + substance abuse; no depression, no suicidal ideation, no panic attacks and no hallucinations Physical Exam Constitutional: WD/WN, vitals as above well developed and well nourished Eyes: PERRL, conjunctivae normal, anicteric sclerae ENMT: external ear and nose normal, oropharynx normal Neck: trachea midline, no thyromegaly Respiratory: normal respiratory effort, lungs clear to auscultation Cardiovascular: RRR, no murmur, no edema Vessels: normal peripheral pulses Extremities: no edema Gastrointestinal (Abdomen): normal bowel sounds, soft, nontender, no hepatosplenomegaly Musculoskeletal: no cyanosis or clubbing, extremities motor strength 5/5 Skin: 3-4cm abrasion on nasal bridge Neurologic: patellar DTR's 2+ bilat, sensation intact and PERRL, EOMI, accommodation nl, no face palsy, no dysarthria CN's II-XI intact bilaterally, deep tendon reflexes 2+ bilaterally and moves all extremities Speech / Cognition: + abnormal speech Motor/Sensory: no tremor, no pronator drift and no sensory deficit Coordination: normal gyhram-at-mdry test and normal Romberg test Psychiatric: A+Ox3, euthymic affect Affect: + anxious affect Mood: no depressed mood Insight: good insight Results & Data Vital Signs (Past 12 Hours) Vital Signs Temp Pulse Pulse Resp BP BP Pulse Ox 07/21/18 07:43 170/94 H 07/21/18 07:21 36.9 C 77 20 176/107 H 96 07/21/18 02:00 146/79 H 07/21/18 01:22 170/108 H 07/21/18 01:08 178/104 H 07/20/18 23:45 77 07/20/18 23:00 37.1 C 74 20 164/107 H 94
[2018-07-21] MEDS ORDERED: POTASSIUM CHLORIDE 20 MEQ TABCR PO STA (09:28)
--- NOTE | 2018-07-21 13:05 | Procedure Note ---
EEG Procedure Note Date of Service July 21, 2018 Start / End Times Start Time: 11:56 AM End Time: 12:16 PM Referring Physician Babs Oconnell History This is a 43-year-old male with first-time seizure. EEG for further evaluation of seizure etiology. Home Medication List Home Medications Medication Instructions Recorded Confirmed Type atenolol 100 mg PO QAM 07/20/18 07/20/18 History fosinopril 20 mg PO QAM 07/20/18 07/20/18 History Inpatient Medication List Atenolol (Tenormin) 100 mg PO QAM [facility] Stop: 08/20/18 08:59 Last Admin: 07/21/18 07:27 Dose: 100 mg Documented by: [id number] Chlordiazepoxide HCl (Librium) 10 mg PO TID PRN PRN Reason: Anxiety Stop: 08/19/18 18:16 Last Admin: 07/21/18 11:17 Dose: 10 mg Documented by: [id number] Clonidine HCl (Catapres) 0.1 mg PO Q8 PRN PRN Reason: Blood Pressure - High Stop: 08/19/18 17:07 Last Admin: 07/21/18 11:17 Dose: 0.1 mg Documented by: [id number] Admin: 07/21/18 00:05 Dose: 0.1 mg Documented by: [id number] Sodium Chloride (Nss 1000ml) 1,000 mls @ 100 mls/hr IV .Q10H [facility] Stop: 08/19/18 18:16 Last Admin: 07/21/18 04:40 Dose: 100 mls/hr Documented by: [id number] Infusion: 07/21/18 04:38 Dose: 100 mls/hr Documented by: [id number] Admin: 07/20/18 18:38 Dose: 100 mls/hr Documented by: [id number] Levetiracetam (Keppra) 500 mg PO BID [facility] Stop: 08/19/18 20:59 Last Admin: 07/21/18 07:27 Dose: 500 mg Documented by: [id number] Admin: 07/20/18 20:29 Dose: 500 mg Documented by: [id number] Lisinopril (Zestril) 20 mg PO QAM [facility] Stop: 08/20/18 08:59 Last Admin: 07/21/18 07:28 Dose: 20 mg Documented by: [id number] Discontinued Medications Acetaminophen (Tylenol) Confirm Administered Dose 650 mg .ROUTE .STK-MED ONE Stop: 07/20/18 18:45 Last Admin: 07/20/18 18:45 Dose: 650 mg Documented by: [id number] Sodium Chloride (Nss 1000ml) 1,000 mls @ 999 mls/hr IV .Q1H1M [facility] Stop: 07/20/18 15:45 Last Infusion: 07/20/18 16:14 Dose: 0 mls/hr Documented by: [id number] Admin: 07/20/18 15:13 Dose: 999 mls/hr Documented by: [id number] Levetiracetam 1,000 mg/ (Dextrose) 110 mls @ 440 mls/hr IV NOW STA Stop: 07/20/18 15:17 Last Infusion: 07/20/18 15:40 Dose: 0 mls/hr Documented by: [id number] Admin: 07/20/18 15:25 Dose: 440 mls/hr Documented by: [id number] Lorazepam (Ativan) 1 mg in 2 mls @ 2 mls/min IV NOW STA Stop: 07/20/18 15:06 Last Admin: 07/20/18 15:13 Dose: Not Given Documented by: [id number] Phenytoin 2,000 mg/ Sodium (Chloride) 140 mls @ 200 mls/hr IV NOW STA Stop: 07/20/18 15:59 Last Infusion: 07/20/18 16:26 Dose: 0 mls/hr Documented by: [id number] Admin: 07/20/18 15:44 Dose: 200 mls/hr Documented by: [id number] Labetalol HCl (Normodyne) 10 mg IV NOW STA Stop: 07/20/18 14:49 Last Admin: 07/20/18 17:32 Dose: Not Given Documented by: [id number] Lorazepam (Ativan) Confirm Administered Dose 2 mg .ROUTE .STK-MED ONE Stop: 07/20/18 14:58 Last Admin: 07/20/18 15:14 Dose: 2 mg Documented by: [id number] Phenytoin (Dilantin) Confirm Administered Dose 250 mg IV .STK-MED ONE Stop: 07/20/18 15:00 Last Admin: 07/20/18 15:36 Dose: Not Given Documented by: [id number] Potassium Chloride (Klor-Con M20) 40 meq PO NOW STA Stop: 07/21/18 09:29 Last Admin: 07/21/18 10:19 Dose: 40 meq Documented by: [id number] Description This is a 21 electrode EEG with a single channel dedicated to limited EKG. The electrodes were placed in accordance with the International 10-20 system. At the start of the recording the patient was in an awake state. Background was well organized and composed of symmetric mixed alpha and beta frequencies. There was a symmetric well-formed moderate amplitude 9Hz Hz posterior dominant rhythm that was reactive to eye opening and closure. Hyperventilation was not done. Intermittent photic stimulation at various frequencies produced no abnormalities. Sleep was indicated by symmetric sleep spindles Interpretation This is a normal awake and asleep routine EEG. There was no electrographic seizures or epileptiform discharges. Clinical Correlation A normal EEG does not rule out epilepsy if there is a strong clinical suspicion.
--- NOTE | 2018-07-21 15:01 | XRay Report ---
BONY ORBITS 3 VIEWS CLINICAL HISTORY: MRI clearance. FINDINGS: 3 views of the bony orbits are obtained. No prior studies are available for comparison at t he time of dictation. There is no radiodense/metallic foreign body seen in the region of the bony orb its. The bony orbits are intact as imaged. The visualized paranasal sinuses and the mastoid air cells appear clear. The imaged calvarium appears intact. IMPRESSION: There is no radiodense/metallic foreign body seen in the region of the bony orbits. Electronically signed by: Klaus Ritchie M.D. 07/21/2018 2:59 PM
[2018-07-21] MEDS ORDERED: LORazepam 1 MG/2 ML VIAL IV PRN (15:44)
--- NOTE | 2018-07-21 18:47 | Family Medicine Progress Note ---
Date of Service July 21, 2018 Assessment & Plan (1) Seizures: Deion is a 43 year old male past medical history of HTN who presented after a seizure yesterday. Due to his recent heavy alcohol use and poor sleep it is likely that this was a provoked seizure. Seizure: Grand mal -CT head and face neck negative -Received Keppra and Dilantin in the emergency room -Continue Keppra 500 twice daily -MRI pending to rule out any masses stroke or anatomical abnormalities -EEG with no seizure-like activity -Allergy consulted -If MRI and EEG negative no need for antiseizure medications -Likely alcohol and sleep deprivation provoked seizure -Will send seizure report to [facility] for cessation of driving license for 6 months -Follow up in 1 month at neurology clinic Alcohol use disorder: -On Librium 10 mg 3 times daily as needed -Not interested in inpatient alcohol rehab, follow up with his PCP to discuss outpatient alcohol treatment options and will need to be given information for AA -Counseled on alcohol cessation -Advised to return to the hospital if having any concern for alcohol wi thdrawal symptoms such as shaking elevated heart rate Hypertension -Continue home atenolol and Monopril -Clonidine as needed DVT prophylaxis SCDs encourage ambulation Dispo: home pending MRI Code full Supervising Physician Co-Signing Physician Notes I personally examined the patient and verified all nicole points of history and exam, discussed case, and agree with decision making with Dr Solomon. Feeling okay now. No new complaints. Awaiting MRI. Appreciate neurology input. Vitals noted, in general he is awake and alert pleasant no distress. HEENT normocephalic atraumatic mucous membranes moist. Breathing is unlabored no accessory muscle use good effort. Skin shows no rashes no pallor or icterus. New onset seizuremost likely alcohol related. Await MRI brain. Appreciate neuro input. If MRI brain is normal, discharged home. Subjective Patient presented with new onset seizure. He reported feeling well. Denied any f/c, PARRA/dizziness, cp, sob, n/v, abdominal pain, dysuria prior to episode. Reports getting out of his truck and had a witnessed tonic-clonic seizure. He does not remember what happened. No warning before hand and then woke up in a mud pile. Per co-workers had a weird look on his face and then fell and started shaking. He denies any history of seizures. No family history of seizures. In the emergency room had another tonic-clonic seizure witnessed by staff. Patient was given Ativan, Dilantin, and Keppra. No additional seizure-like events overnight. No urinary incontinence or tongue biting. Patient does admit to increased alcohol consumption recently, around 8-12 beers per day for the last few months plus 4-5 shots of vodka. Admits that he has been increasing his alcohol usage in the last few weeks due to trouble with divorce. 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 Review of Systems Review of Systems: As per HPI Physical Exam Physical Exam: General: In NAD Neuro: alert and oriented x 4, strength 5/5 bilateral upper and lower extremities, sensation intact bilateral upper and lower extremities, CN2-12 intact CV: RRR, no m/r/g Pulm: CTAB equal breath sounds bilaterally Abdomen: +BS, non-distended, non-tender to palpation in all quadrants LE: no LE edema or calf TTP Results & Data Vital Signs (Past 12 Hours) Vital Signs Temp Pulse Pulse Pulse Resp BP BP 07/21/18 15:44 36.7 C 76 18 166/111 H 07/21/18 15:40 77 07/21/18 13:04 144/89 H 07/21/18 11:33 36.3 C L 75 18 166/109 H 07/21/18 07:43 170/94 H 07/21/18 07:21 36.9 C 77 20 176/107 H Pulse Ox 07/21/18 15:44 95 07/21/18 15:40 07/21/18 13:04 07/21/18 11:33 97 07/21/18 07:43 07/21/18 07:21 96 Resident Activity Tracking Resident Involvement: Resident Care Provided Care Provided: Adult Hospital Medicine
[2018-07-21] MEDS ORDERED: GADOBUTROL 65ML VIAL IV PRN (22:37)
--- NOTE | 2018-07-21 23:06 | Magnetic Resonance Report ---
MR brain seizure wo/w con HISTORY: 43 years-old Male new seizure acute onset seizure COMPARISON: CT head 07/20/2018 TECHNIQUE: Multiplanar multisequence MRI of the brain was obtained both with and without the use of 1 3 mL Gadavist utilizing seizure protocol FINDINGS: No restricted diffusion to suggest acute or subacute infarction. Midline structures including the cor pus callosum, brainstem, optic chiasm, pituitary and pineal glands appear unremarkable on the sagitta l T1 series. There is no cerebellar tonsillar herniation. Mild degenerative changes about the imaged cervical spine. There is no acute intracranial hemorrhage, midline shift, abnormal extra-axial collections, hydroceph alus or intracranial mass. Study is mildly motion degraded. Mildly increased cortically based T2/FLAI R signal is noted about the right occipital lobe measuring up to 2.0 x 1.4 on image 26 series 9. No a bnormal enhancement within this distribution. There is no abnormal intra-axial or extra-axial enhance ment identified. No evidence of mesial temporal sclerosis. No cortical dysplasia or de souza matter heter otopia identified. Major flow voids at the level the skull base appear patent. There is mild mucosal thickening about th e paranasal sinuses. Mastoid air cells are clear. The orbits, skull and soft tissues are unremarkable . IMPRESSION: 1. No acute intracranial hemorrhage, midline shift, acute or subacute infarct. 2. 2.0 x 1.4 cm focus of cortically based increased T2/FLAIR signal about the right occipital lobe is noted without associated enhancement. Differential considerations would include acute seizure focus versus low-grade glial neoplasm. 3 month follow-up MRI of the brain recommended to further evaluate. 3. No evidence of mesial temporal sclerosis, cortical dysplasia or de souza matter heterotopia. The above report was generated using voice recognition software. It may contain grammatical, syntax o r spelling errors. Electronically signed by: Santion Meléndez M.D. 07/21/2018 11:05 PM
[2018-07-22] MEDS: SODIUM CHLORIDE 0.9% 1000ML 1,000 ML IV SCH ×2 (00:09→11:10)
[2018-07-22 07:09] LABS: Hematocrit (blood only) 39.4 % (42-52); Hemoglobin 13.9 g/dL (14.0-18.0); Mean Corpuscular Hgb Conc 35.3 g/dL (32-36); Mean Corpuscular Volume 87.9 fL (80-100); RDW Coefficient of Variation 13.3 % (11.5-14.5); RDW Standard Deviation 42.4 fL (36.4-46.3); Red Blood Count 4.48 M/uL (4.7-6.1); White Blood Count 5.47 K/uL (4.8-10.8)
[2018-07-22 07:13] LABS: Basophils # (auto) 0.01 K/uL (0-0.2); Basophils % (auto) 0.2 %; Eosinophils # (auto) 0.11 K/uL (0-0.5); Immature Granulocytes # (auto) 0.01 K/uL (0.00-0.02); Immature Granulocytes % (auto) 0.2 %; Lymphocytes # (auto) 1.84 K/uL (1.2-3.4); Lymphocytes % (auto) 33.6 %; Mean Platelet Volume 11.6 fL (7.4-10.4); Monocytes # (auto) 0.56 K/uL (0.11-0.59); Monocytes % (auto) 10.2 %; Neutrophils # (auto) 2.94 K/uL (1.4-6.5); Neutrophils % (auto) 53.8 %; Platelet Count 88 K/uL (130-400)
[2018-07-22] MEDS ORDERED: THIAMINE HCL 100 MG TAB PO SCH (07:15)
[2018-07-22 07:45] LABS: Albumin Level 3.3 gm/dl (3.4-5.0); BUN Creatinine Ratio 10.8 (10-20); Calcium 8.4 mg/dl (8.5-10.1); Creatinine Clr Calc Pharmacy 188.1 ml/min; Est GFR (African American) 133.4; Est GFR (Non-African American) 115.1; Potassium 3.6 mmol/L (3.5-5.1)
[2018-07-22 07:48] LABS: Bilirubin,Total 0.8 mg/dl (0.2-1); Globulin 3.4 gm/dl (2.5-4.0); Total Protein 6.7 gm/dl (6.4-8.2)
[2018-07-22] MEDS: LISINOPRIL 20 MG TAB PO SCH (07:57)
[2018-07-22] MEDS: ATENOLOL 50 MG TABLET PO SCH (07:57)
[2018-07-22] MEDS: levETIRAcetam 500 MG TAB PO SCH (07:58)
[2018-07-22] MEDS ORDERED: FOLIC ACID 1 MG TAB PO SCH (09:00)
--- NOTE | 2018-07-22 09:31 | Neurology Progress Note ---
Date of Service July 22, 2018 Assessment & Plan (1) Seizures: This is a 43-year-old male with a single seizure event (he had 2 seizures within 24 hours). Potentially provoked from increased alcohol usage and abuse. Routine EEG is normal. MRI of the brain shows small area of T2/flair increased signal in the right occipital lobe. Most likely residual inflammation due to repeat seizure, but cannot fully rule out underlying malignancy. Recommendations: Continue Keppra 500 mg twice a day since there is a abnormality noted on his MRI, and this is at least temporarily places him at increased risk for seizures. Monitor for any severe mood side effects such as irritability or depression w ebony on Keppra. No blood work monitoring as needed for Keppra. Follow-up in neurology clinic in the next 1 to 2 months with our physician grooming assistant. The plan is to repeat an MRI of the brain in 3 months. If MRI of the brain is normal in 3 months, can come off of Keppra if no additional seizures. Patient is aware that he is not allowed to drive for at least 6 months and needs to establish care for treatment of alcoholism. Instructed him to call the neurology clinic if any additional events concerning for seizures. Thank you for allowing me to participate in this patient's care. If there is any questions or concerns, feel free to call/page me. No neurological barriers to discharge today. Subjective No additional events concerning for seizures since admission. Patient feels at his neurological baseline. No reported side effects to Keppra at this time. EEG was normal MRI of the brain report and images were reviewed by myself. The patient does have a small area of T2/flair signal changes in the right occipital lobe. This may be residual inflammation from repeat seizures, but cannot rule out underlying malignancy. Review of Systems Review of Systems: All systems reviewed & are unremarkable except as noted in HPI & below Physical Exam Physical Exam: Exam: Gen.: Patient is alert and oriented in no acute distress lying in bed Neurological examination: Mental status: Patient is alert and oriented to person place and time. Able to give own history. Good fund of knowledge. Attention and concentration normal for the situation. Recent and remote memory intact Speech is fluent without any dysarthria or aphasia noted Cranial nerves:No facial asymmetry noted. Facial sensation intact. Hearing grossly intact voice. Strength: 5/5 both proximal and distal in all extremities Station within the bed is normal. Results & Data Vital Signs (Past 12 Hours) Vital Signs Temp Pulse Resp BP Pulse Ox 07/22/18 07:19 37.2 C 81 18 176/118 H 95 07/22/18 04:00 37.2 C 75 18 157/98 H 95 07/21/18 23:00 37.0 C 78 18 160/104 H
--- NOTE | 2018-07-22 11:19 | Discharge Summary ---
Date of Service July 22, 2018 Admission HPI Per Admitting Provider 43-year-old male who presented from the field with a concern for seizures and was witnessed to have a grand mal seizure in the emergency department by staff. 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 Patient brought to the ER where he was postictal then resumed his normal state and he was again developed the staring type of posture that had tonic-clonic movements. Patient was given benzodiazepines Keppra and Dilantin in the ER. A CT scan of his head is unremarkable tox screen is currently pending. Patient does drink alcohol usually more of a binge type drinking alcohol not a daily drinker of alcohol he did have some alcohol last night which is less than his usual state. However he is does not drink continuously throughout the week. He is never had problems with withdrawal in the past. He currently although Medicaid does not appear to be shaky he is slightly hypertensive Patient denies using any other illegal substances [id number] meds or supplements of any kind. He typically only takes atenolol and Monopril for hypertensive control Admission Exam Per Admitting Provider The patient appeared well nourished and normally developed. Vital signs as documented. He is slightly hypertensive he is "ready "complected Head exam is unremarkable. normocephalic, atraumatic Neck is without jugular venous distension, thyromegaly, or lymphademopathy Lungs are clear to auscultation and percussion. Cardiac exam reveals Rhythm is regular. First and second heart sounds normal. Abdominal exam reveals normal bowel sounds, no masses, no organomegaly Extremities are nonedematous and both pedal pulses are present Neurologic exam is A&Ox3, no focal deficits, strength is equal bilateral Psychologically seems neither anxious or depressed but is slightly sedated from medications received in the ER Skin is warm Dry without bruises or lesions Principal Diagnosis Seizure - likely alcohol induced Discharge Exam General: In NAD CV: RRR, no m/r/g Pulm: CTAB equal breath sounds bilaterally Abdomen: +BS, non-distended, non-tender to palpation in all quadrants LE: no LE edema or calf TTP Discharge Data Allergies Allergy/AdvReac Type Severity Reaction Status Date / Time No Known Allergies Allergy Unverified 07/20/18 14:13 Consultations 07/20/18 15:53 ED Decision to Admit Stat 07/20/18 18:17 Consult Case Management - Discharge Planning Routine Consult Neurology Routine Ordered Studies 07/20/18 14:45 CT facial bones wo con Stat IMPRESSION: No fractures within the maxillofacial region. CT head/brain wo con Stat Impression: No acute intracranial abnormality. 07/21/18 09:38 MR brain seizure wo/w con Routine IMPRESSION: 1. No acute intracranial hemorrhage, midline shift, acute or subacute infarct. 2. 2.0 x 1.4 cm focus of cortically based increased T2/FLAIR signal about the right occipital lobe is noted without associated enhancement. Differential considerations would include acute seizure focus versus low-grade glial neoplasm. 3 month follow-up MRI of the brain recommended to further evaluate. 3. No evidence of mesial temporal sclerosis, cortical dysplasia or de souza matter heterotopia. Hospital Course (1) Seizures: Deion is a 43 year old male past medical history of HTN who presented a fter a seizure on 07/20. Due to his recent heavy alcohol use and poor sleep it is likely that this was a provoked seizure. Seizure: Grand mal -CT head and face neck negative -MRI 2.0 x 1.4 cm focus of cortically based increased T2/FLAIR signal about the right occipital lobe is noted without associated enhancement. Differential considerations would include acute seizure focus versus low-grade glial neoplasm. 3 month follow-up MRI of the brain recommended to further evaluate -per neurology debbie residual inflammation from repeat seizures vs. malignancy -EEG with no seizure-like activity -Received Keppra and Dilantin in the emergency room -Continue Keppra 500 twice daily until repeat MRI in 3 months, if improved neurology might stop keppra. Advised to watch out for side effects of irritability and depression mood and call neurology clinic with concerns. -Neurology will sent seizure report - pt cannot drive for 6 months -Follow up in 1 month at neurology clinic Alcohol use disorder: -On Librium 10 mg 3 times daily as needed -Not interested in inpatient alcohol rehab, follow up with his PCP to discuss outpatient alcohol treatment options and will need to be given information for AA -Counseled on alcohol cessation -Advised to return to the hospital if having any concern for alcohol withdrawal symptoms such as shaking elevated heart rate Hypertension -Continue home atenolol and Monopril DVT prophylaxis SCDs only Code full Total Time Total Time Spent Total Time Spent (In Minutes): <30 mins Discharge Plan Discharge Items Patient Disposition: Home - Self-Care Reason For Visit: NEW ONSET SEIZURE Discharge Diagnosis: seizure likely alcohol related Discharge Goals: Diagnostic testing and Therapeutic intervention Activity: Resume your previous activity Non-emergency contact: Primary Care Provider Call non-emergency contact if: you have any medication questions and your symptoms worsen Follow-up/Referrals: Bharti Crawford PA-C [Physician Sensory Scientist] - 09/02/18 9:40 am (Please, follow up at [facility] Neurology Office with Bharti Crawford PA-C on September 02 at 10:00 am (arrive 9:40 am). *This office is located at [address] in [place]. If you need to change this appointment, call the office at [phone].) Deuce Rojo [Primary Care Provider] - Diet: Regular Addtl Provider Instructions: as we discussed, if you were to see any signs of alcohol withdrawal, we would want you back to the hospital right away for management -typically it would start as feeling shaky/tremulous and anxious, accompanied by a racing heart. more than likely it will not occur, but if it were to happen, it would most likely start in the next 1-2 days. -Take Keppra 500mg twice a day to prevent further seizures, watch out for mood side effects such as irritability and depression. You will need repeat brain imaging (MRI) in [address] Oconnell can schedule to see if it has improved and hopefully you can get off Keppra if improved -If you have any additional seizures, call neurology clinic/Dr. Rodriguez or return to the ED/call 911 -You are not allowed to drive for 6 months -As discussed, we encourage alcohol cessation and you need outpatient therapy which your primary care doctor can arrange -We have prescribed you vitamin/supplement that your body might be lacking since you have been drinking alcohol for a few months now. Please take them as prescribed to prevent any alcohol associated complications. -follow up with Dr Rodriguez/Bharti Crawford of neurology in mid August as scheduled. Follow up with Dr. Deuce Rojo as scheduled Prescriptions: New levetiracetam [Keppra] 500 mg Tablet 500 mg PO BID 30 Days Qty: 60 RF: 0 thiamine HCl (vitamin B1) [Vitamin B-1] 100 mg Tablet 100 mg PO QAM Qty: 30 RF: 0 folic acid 1 mg Tablet 1 mg PO QAM Qty: 30 RF: 0 Continued atenolol 100 mg tablet 100 mg PO QAM RF: 0 fosinopril 20 mg tablet 20 mg PO QAM RF: 0 Stand-Alone Forms: [facility] Discharge Orders: Discharge Order (Routine); Ordered 07/22/18 Ordered By: Evan Solomon Admission Data Admit Date/Time: 07/20/18 16:35 Attending Provider: Michael Leon Admit Provider: Mauro Tobin Primary Care Provider: Deuce Rojo Other Providers: Mauro Tobin ; Babs Oconnell ; Nick Araujo Service: Telemetry Medical Other Interventions: Discharge Summary Assessment (RN) Last Done: 07/22/18 11:04 DC Date/Time DO NOT enter until pt leaves facility: 07/22/18 12:31 Supervising Physician Co-Signing Physician Notes I personally examined the patient and verified all nicole points of history and exam, discussed case, and agree with decision making with Dr Solomon. No further seizures. No tachycardia no tremors no anxiety. Actually notes that he feels better than he has in a while. MRI discussed. Input from neurology greatly appreciated. Vitals noted, in general he is awake and alert no distress. HEENT normocephalic atraumatic mucous membranes are moist. Breathing is unlabored no accessory muscle use. He has no tremor. Skin shows no rashes no pallor or icterus. New-onset seizuremost likely alcohol related. MRI noted, neurology input appreciated. Sent home on ongoing anticonvulsant for the time being. Abnormal brain MRImost likely from seizurerepeat MRI in approximately 3 months to ensure it goes away. Alcohol abuseshowing no signs or symptoms of withdrawal about a day and a half since his last drink. Cautioned about what alcohol withdrawal would look or feel like as well as the timeline. He is to return if he shows any signs or symptoms although right now he does not. Continue thiamine and folate. Stable for home Resident Activity Tracking Resident Involvement: Resident Care Provided Care Provided: Adult Hospital Medicine
[2018-07-22 12:03] VITALS: BP 167/107; PULSE 74; TEMP 98.6; O2SAT 97
[2018-07-23 10:07] LABS: 7-Aminoclonaz, Confirm NEGATIVE NG/ML (CUTOFF=25); Hydro-Alp Ur, GC/MS NEGATIVE NG/ML (CUTOFF=25); Hydroxyethylflurazepam, Conf NEGATIVE NG/ML (CUTOFF=50); Hydroxytriazolam NEGATIVE NG/ML (CUTOFF=50); Lorazepam, Ur GC/MS NEGATIVE NG/ML (CUTOFF=50); Nordiazepam, Confirm NEGATIVE NG/ML (CUTOFF=50); Oxazepam Ur, GC/MS NEGATIVE NG/ML (CUTOFF=50); Temazepam, Confirm NEGATIVE NG/ML (CUTOFF=50)
== END 2018-07-22 12:31 | disposition home or self-care (01) | DRG 100 ==
LOC: ED 13:15 → SUATTDRO 16:35 → 2W 16:35